=== PATIENT | male | born 1995 | race African-American/Black ===

== ENCOUNTER 2020-12-26 14:45 | Emergency (ER) | payer MEDICAID ==
[~2020-12-26] VITALS: Ht 175.3 cm; Wt 65.9 kg
[2020-12-26] MEDS ORDERED: haloperidol lactate 5mg/ml inj IM ONE ×2 (14:50→15:45)
[2020-12-26] MEDS ORDERED: diphenhydrAMINE 50 mg/ml inj IM ONE (14:50)
[2020-12-26 15:05] VITALS: BP 126/101
[2020-12-26 15:16] LABS: BASOPHILS # (AUTO) 0.1 X10'3 (0-0.2); BASOPHILS % (AUTO) 0.4 % (0-1); EOSINOPHILS % (AUTO) 0.1 % (0-6); HEMOGLOBIN 17.5 g/dl (14.0-17.9); LYMPHOCYTES # (AUTO) 2.1 X10'3 (1.1-4.8); LYMPHOCYTES % (AUTO) 13.9 % (21-51); MEAN CORPUSCULAR HEMOGLOBIN 30.8 PG (27.0-31.0); MEAN CORPUSCULAR HGB CONC 33.7 g/dL (33.0-36.5); MEAN CORPUSCULAR VOLUME 91.4 FL (78-98); MEAN PLATELET VOLUME 8.7 FL (7.4-10.4); MONOCYTES # (AUTO) 0.9 X10'3 (0-0.9); MONOCYTES % (AUTO) 5.6 % (2-12); NEUTROPHILS # (AUTO) 12.3 X10'3 (1.8-7.7); PLATELET COUNT 286 X10'3 (140-440); RED BLOOD COUNT 5.68 X10'6 (4.70-6.10); RED CELL DISTRIBUTION WIDTH 13.3 % (11.5-14.5); WHITE BLOOD COUNT 15.4 X10'3 (4.5-11.0)
[2020-12-26] MEDS ORDERED: LORazepam 2 mg/ml vial IM ONE ×2 (15:25→15:55)
[2020-12-26 15:29] LABS: ALANINE AMINOTRANSFERASE 27 U/L (12-78); ALBUMIN 4.9 G/DL (3.4-5.0); ALBUMIN/GLOBULIN RATIO 1.1 (1.1-1.5); ALKALINE PHOSPHATASE 86 IU/L (46-116); ANION GAP 23 (8-16); ASPARTATE AMINO TRANSFERASE 30 U/L (10-37); BILIRUBIN,TOTAL 0.7 MG/DL (0.1-1.0); BLOOD UREA NITROGEN 10 MG/DL (7-18); BUN/CREATININE RATIO 5.1 (5.4-32.0); CALCIUM 10.1 MG/DL (8.5-10.1); CHLORIDE 105 MMOL/L (99-107); CREATININE 1.98 MG/DL (0.60-1.10); GLUCOSE 106 MG/DL (70-104); POTASSIUM 3.9 MMOL/L (3.5-5.1); SODIUM 144 MMOL/L (135-145); TOTAL CARBON DIOXIDE 15.6 MMOL/L (24-32); TOTAL PROTEIN 9.2 G/DL (6.4-8.2); eGFR 41 ML/MIN
[2020-12-26 15:38] LABS: CREATINE KINASE 434 U/L (39-308)
[2020-12-26 15:46] LABS: ETHANOL < 0.010 GM/DL (0.0-0.010)
== END 2020-12-26 18:40 ==
LOC: ER 14:46
DX: S00.81XA Abrasion of other part of head, initial encounter (principal); R45.1 Restlessness and agitation; F20.9 Schizophrenia, unspecified; F43.10 Post-traumatic stress disorder, unspecified; F29 Unspecified psychosis not due to a substance or known physiological condition; X58.XXXA Exposure to other specified factors, initial encounter; Y93.89 Activity, other specified; Y92.89 Other specified places as the place of occurrence of the external cause; Y99.8 Other external cause status
CPT/HCPCS: 36415; 80053; 80178; 80320; 82550; 84443; 85025; 96372; 99284; J1200; J1630; J2060

== ENCOUNTER 2021-03-01 10:33 | Emergency (ER) | payer MEDICAID ==
[~2021-03-01] VITALS: Ht 175.3 cm; Wt 86.4 kg
[2021-03-01 10:51] VITALS: BP 140/75
[2021-03-01] MEDS ORDERED: HYDR28CR14 TOP (11:40)
[2021-03-01] MEDS ORDERED: PROCHC RC (11:40)
--- NOTE | 2021-03-01 12:15 | NUR ---
PATIENT UPSET WHILE WAITING FOR DC PAPERWORK, WALKED THROUGHT RN STATION AND TRIED TO WALK OUT THE BACK DOOR. WAS STOPPED BY STAFF WHILE I GOT HIS DC PAPERS AND PICKED UP A PORTABLE O2 TANK AND WAS HOLDING IT. DID NOT LISTEN TO DC INSTRUCTIONS, RIPPED THE PAPERS OUT OF MY HAND AND WALKED OUT THE BACK DOOR WITHOUT SIGNING.
== END 2021-03-01 12:20 | disposition home or self-care (01) ==
LOC: ER 10:34
DX: L30.9 Dermatitis, unspecified (principal); K64.9 Unspecified hemorrhoids; Z79.899 Other long term (current) drug therapy
CPT/HCPCS: 99283

== ENCOUNTER 2021-06-02 04:22 | Emergency (ER) | payer MEDICARE, MEDICAID ==
[~2021-06-02] VITALS: Ht 175.3 cm; Wt 77.3 kg
[~2021-06-02 04:22] MED LIST: HYDR28CR14 TOP; PROCHC RC
[2021-06-02] MEDS ORDERED: LORazepam 1 MG tablet PO ONE (04:35)
[2021-06-02] MEDS ORDERED: diphenhydrAMINE 25mg capsule PO ONE ×2 (04:35→21:00)
[2021-06-02] MEDS ORDERED: OLANZapine 5mg rapidly disint. tablet PO ONE (04:35)
[2021-06-02] MEDS ORDERED: OLAN10TA73 PO (05:18)
[2021-06-02] MEDS ORDERED: LITH300T3 PO (05:18)
[2021-06-02 05:46] LABS: BASOPHILS % (AUTO) 0.4 % (0-1); EOSINOPHILS # (AUTO) 0.1 X10'3 (0-0.9); EOSINOPHILS % (AUTO) 0.7 % (0-6); HEMATOCRIT 46.9 % (42.0-52.0); HEMOGLOBIN 15.8 g/dl (14.0-17.9); LYMPHOCYTES # (AUTO) 1.7 X10'3 (1.1-4.8); LYMPHOCYTES % (AUTO) 20.2 % (21-51); MEAN CORPUSCULAR HEMOGLOBIN 31.1 PG (27.0-31.0); MEAN CORPUSCULAR HGB CONC 33.8 g/dL (33.0-36.5); MEAN CORPUSCULAR VOLUME 92.2 FL (78-98); MEAN PLATELET VOLUME 8.6 FL (7.4-10.4); MONOCYTES # (AUTO) 0.4 X10'3 (0-0.9); MONOCYTES % (AUTO) 4.6 % (2-12); NEUTROPHILS # (AUTO) 6.2 X10'3 (1.8-7.7); NEUTROPHILS % (AUTO) 74.1 % (42-75); PLATELET COUNT 246 X10'3 (140-440); RED BLOOD COUNT 5.09 X10'6 (4.70-6.10); WHITE BLOOD COUNT 8.3 X10'3 (4.5-11.0)
[2021-06-02 06:16] LABS: ALANINE AMINOTRANSFERASE 26 U/L (12-78); ALBUMIN 4.3 G/DL (3.4-5.0); ALBUMIN/GLOBULIN RATIO 1.1 (1.1-1.5); ALKALINE PHOSPHATASE 88 IU/L (46-116); ANION GAP 11 (8-16); ASPARTATE AMINO TRANSFERASE 18 U/L (10-37); BILIRUBIN,TOTAL 0.2 MG/DL (0.1-1.0); BLOOD UREA NITROGEN 15 MG/DL (7-18); BUN/CREATININE RATIO 12.5 (5.4-32.0); CALCIUM 9.3 MG/DL (8.5-10.1); CHLORIDE 105 MMOL/L (99-107); GLUCOSE 99 MG/DL (70-104); POTASSIUM 3.6 MMOL/L (3.5-5.1); SODIUM 143 MMOL/L (135-145); TOTAL CARBON DIOXIDE 27.1 MMOL/L (24-32); TOTAL PROTEIN 8.3 G/DL (6.4-8.2); eGFR 89 ML/MIN
[2021-06-02 06:23] LABS: ETHANOL < 0.010 GM/DL (0.0-0.010)
--- NOTE | 2021-06-02 06:30 | NUR ---
patient moved to room 7,on airborne precaution for covid.
[2021-06-02 06:38] LABS: CLARITY,URINE CLEAR (Clear); COLOR,URINE YELLOW (Yellow); GLUCOSE, URINE NEGATIVE (Neg); KETONES,URINE NEGATIVE (Neg); LEUKOCYTE ESTERASE ,URINE NEGATIVE (Neg); NITRITES, URINE NEGATIVE (Neg); OCCULT BLOOD,URINE NEGATIVE (Neg); PH,URINE 6.5 (4.8-8.0); PROTEIN,URINE NEGATIVE (Neg); UROBILINOGEN,URINE 0.2 E.U/dL (0.2-1.0)
[2021-06-02 06:39] LABS: UA COLLECTION TYPE CLN CATCH MIDSTREAM
[2021-06-02 06:51] LABS: URINE AMPHETAMINE SCREEN POSITIVE (Neg); URINE BARBITUATE SCREEN NEGATIVE (Neg); URINE BENZODIAZEPINES SCREEN NEGATIVE (Neg); URINE CANNABINOID SCREEN POSITIVE (Neg); URINE COCAINE SCREEN NEGATIVE (Neg); URINE METHADONE SCREEN NEGATIVE (Neg); URINE OPIATE SCREEN NEGATIVE (Neg); URINE PHENCYCLIDINE SCREEN NEGATIVE (Neg)
--- NOTE | 2021-06-02 07:14 | NUR ---
patient is anxious and paranoid unable to redirect.
--- NOTE | 2021-06-02 07:15 | NUR ---
patient pacing back and forth in the room,stuck right arm inside sharps container, also started eating socks,keeps opening the door wanting to leave inspite knowing he is on a hold and is + for covid.Patient unable to redirect.Dr. Allen made aware and will order b52.
[2021-06-02] MEDS ORDERED: OLANZapine **IM** 10 mg inj. IM ONE ×2 (07:20→13:40)
[2021-06-02] MEDS ORDERED: diphenhydrAMINE 50 mg/ml inj IM ONE ×3 (07:20→18:20)
[2021-06-02] MEDS ORDERED: LORazepam 2 mg/ml vial IM ONE ×2 (07:20→13:40)
[2021-06-02] MEDS: olanzapine 10mg tablet PO SCH ×3 (07:21→21:00)
--- NOTE | 2021-06-02 07:55 | NUR ---
patient trying to elope, 4 point hard restraint placed, patient willing to be on restraint.Patient awake at this time, paranoid that someone will hurt him, RN re assured that patient is in a safe place.
[2021-06-02] MEDS ORDERED: lithium carbonate 150mg capsule PO SCH (08:00)
[2021-06-02] MEDS: lithium carbonate 150mg capsule PO SCH ×3 (08:27→22:28)
--- NOTE | 2021-06-02 08:30 | NUR ---
Given 80ml of water.
[2021-06-02] MEDS: quetiapine 100mg tablet PO SCH (08:59)
--- NOTE | 2021-06-02 10:06 | NUR ---
patient still on 4 point restraint,awake on the bed,actively hallucinating.
--- NOTE | 2021-06-02 11:45 | NUR ---
patient in and out of hallucination.
--- NOTE | 2021-06-02 12:10 | NUR ---
PT IN ROOM, PULLING ARMS UP AGAINST RESTRAINTS. VS CHECKED. DR CAMACHO AND PRIMARY RN NOTIFIED OF HR 120. DR CAMACHO REPORTS THAT SHE WILL SEE THE PT.
--- NOTE | 2021-06-02 13:33 | NUR ---
Patient tip over his bed while on restraint to his right side,security/staff at bedside to assist patient.Dr. Dimitri berger.
--- NOTE | 2021-06-02 13:36 | NUR ---
patient back on bed, continues on 4 point restrainrs, fighting restraints.Trying to get up.
--- NOTE | 2021-06-02 13:39 | NUR ---
Dr. Szymanski seen the patient, no orders at this time.
[2021-06-02 14:18] LABS: CREATINE KINASE 169 U/L (39-308)
--- NOTE | 2021-06-02 14:29 | NUR ---
given 300ml water.Refused to eat when offered yogurt.
--- NOTE | 2021-06-02 14:36 | NUR ---
patient on high fowlers with intermittent agitation and hallucination.
--- NOTE | 2021-06-02 14:56 | NUR ---
patient still fighting restraints,given ativan 2mg IM,zyprexa 10mg IM and benadryl 25mg IM.
--- NOTE | 2021-06-02 15:58 | NUR ---
left hand and right foot restraint off.patient in and out of sleep.
--- NOTE | 2021-06-02 16:33 | NUR ---
patient asleep at this time.respirations regular.
--- NOTE | 2021-06-02 17:14 | NUR ---
patient off of 4 point restraints.
--- NOTE | 2021-06-02 18:19 | NUR ---
patient got up,banging head to the wall.lac to left forehead.patient placed into a four point hard restraint.Dr. Wylie at bedside to assess patient.
[2021-06-02] MEDS ORDERED: haloperidol lactate 5mg/ml inj IM ONE (18:20)
--- NOTE | 2021-06-02 19:59 | NUR ---
Per MD hold scheduled oral medication if patient is calm and resting. Only administer if patient is awake and restless. Pt placed on 5 lead and O2 monitor, and is currently in 4 point restraints.
[2021-06-02] MEDS ORDERED: olanzapine 10mg tablet PO SCH (21:00)
[2021-06-02] MEDS: QUEtiapine 25mg tablet PO SCH (22:28)
--- NOTE | 2021-06-03 02:39 | NUR ---
Restraints removed and patient offered urinal, food, and water. Pt was advised that while out of restraints he needed to keep himself and others safe by following directions and abstaining from violent behavior. Pt given warm blankets and he returned to bed.
[2021-06-03] MEDS: olanzapine 10mg tablet PO SCH ×2 (08:00→21:14)
[2021-06-03] MEDS: lithium carbonate 150mg capsule PO SCH ×3 (10:22→21:14)
[2021-06-03] MEDS: quetiapine 100mg tablet PO SCH (10:22)
--- NOTE | 2021-06-03 18:35 | NUR ---
Patient sitting up eating dinner, no complaints. I will continue to monitor.
[2021-06-03] MEDS: QUEtiapine 25mg tablet PO SCH (21:14)
--- NOTE | 2021-06-04 07:00 | NUR ---
PATIENT UP IN BARRI[place], LOOKING THROUGH DIRTY FOOD TRAYS, STATES HE IS HUNGRY. PATIENT MADE AWARE IT IS NOT YET BREAKFAST HOUR. RETURNED TO [facility] WITH ASSISTANCE OF SECURITY. RESTING COMFORTABLY IN BED.
[2021-06-04] MEDS: olanzapine 10mg tablet PO SCH ×3 (08:00→22:25)
[2021-06-04] MEDS: lithium carbonate 150mg capsule PO SCH ×3 (08:00→22:25)
--- NOTE | 2021-06-04 08:30 | NUR ---
PATIENT STATES HE REFUSES ANY MEDICATIONS UNTIL HE SPEAKS WITH A DOCTOR. DR ALBA MADE AWARE. CAROL HER MADE AWARE.
[2021-06-04] MEDS: quetiapine 100mg tablet PO SCH (08:55)
--- NOTE | 2021-06-04 09:00 | NUR ---
PATIENT SLEEPING, NO SIGNS OF DISTRESS NOTED, PAT WITHIN SITE OF STAFF AT ALL TIMES.
--- NOTE | 2021-06-04 10:00 | NUR ---
PATIENT STATES HE WANTS HIS CELLPHONE SO HE CAN LOOK UP SOME PHONE NUMBERS. PATIENT EDUCATED ON POLICY OF BELONGINGS. PHONE PROVIDED WITH SUPERVISION.
--- NOTE | 2021-06-04 11:43 | NUR ---
JACKI (MOM) [phone] PLEASE CALL HER BACK WHEN YOU CAN.
--- NOTE | 2021-06-04 12:11 | NUR ---
PATIENT SLEEPING, NO SIGNS OF DISTRESS NOTED, WITHIN SITE OF STAFF AT ALL TIMES.
--- NOTE | 2021-06-04 13:14 | NUR ---
LUNCH MEAL TRAY GIVEN TO PT
--- NOTE | 2021-06-04 14:00 | NUR ---
PATIENT SLEEPING, NO SIGNS OF DISTRESS NOTED, PAT WITHIN SITE OF STAFF AT ALL TIMES.
--- NOTE | 2021-06-04 15:00 | NUR ---
PATIENT SLEEPING, NO SIGNS OF DISTRESS NOTED, WITHIN SITE OF STAFF AT ALL TIMES.
--- NOTE | 2021-06-04 16:46 | NUR ---
PATIENT ASKED FOR WARM BLANKETS AND A SNACK. RETURNED TO BED, PATIENT WITHIN SITE OF STAFF AT ALL TIMES.
--- NOTE | 2021-06-04 18:42 | NUR ---
ASSUMED CARE OF PT. PT LYING ON GURNEY. SLEEPING COMFORTABLY. EQUAL RISE AND FALL OF CHEST.
--- NOTE | 2021-06-04 20:00 | NUR ---
PT LYING ON HIS LEFT SIDE SLEEPING. EQUAL RISE AND FALL OF CHEST.
--- NOTE | 2021-06-04 21:00 | NUR ---
PT CONTINUED TO SLEEP COMFORTABLY ON HIS SIDE. EQUAL RISE AND FALL OF CHEST .
[2021-06-04] MEDS: QUEtiapine 25mg tablet PO SCH (22:25)
--- NOTE | 2021-06-04 22:35 | NUR ---
I HAD NO ISSUES GIVING PT HIS MEDICATIONS. PT WAS PLEASANT AND COMPLIANT. NO COMPLAINTS AT PRESENT.
--- NOTE | 2021-06-04 23:00 | NUR ---
DAX PEREZ, KINDLY GAVE PT A MEAL HE HAD NOT HAD HIS MEAL TRAY DELIVERED. PT THANKED ANA AND IS CURRENTLY SITTING ON HIS BED EATING.
--- NOTE | 2021-06-05 00:36 | NUR ---
PT IS COMFORTABLY SLEEPING ON HIS SIDE. EQUAL RISE AND FALL OF CHEST.
--- NOTE | 2021-06-05 01:30 | NUR ---
PT IS SLEEPING COMFORTABLY. EQUAL RISE AND FALL OF CHEST.
--- NOTE | 2021-06-05 02:25 | NUR ---
PT WENT TO RESTROOM AND BACK. HE IS LYING DOWN IN BED AGAIN AND SLEEPING. EQUAL RISE AND FALL OF CHEST.
--- NOTE | 2021-06-05 03:30 | NUR ---
PT SLEEPING COMFORTABLY. NO COMPLAINTS
--- NOTE | 2021-06-05 04:30 | NUR ---
PT SHIFTED IN BED. CONTINUES TO SLEEP. EQUAL RISE AND FALL OF CHEST.
--- NOTE | 2021-06-05 06:00 | NUR ---
PT IS SLEEPING. EQUAL RISE AND FALL OF CHEST.
--- NOTE | 2021-06-05 06:49 | NUR ---
Patient asleep at this time, we will monitor.
--- NOTE | 2021-06-05 08:15 | NUR ---
patient denies SI or HI at this time.cooperative.
--- NOTE | 2021-06-05 09:00 | NUR ---
[facility] AT BEDSIDE.
[2021-06-05] MEDS: olanzapine 10mg tablet PO SCH ×2 (09:29→21:02)
[2021-06-05] MEDS: lithium carbonate 150mg capsule PO SCH ×3 (09:29→21:01)
[2021-06-05] MEDS: quetiapine 100mg tablet PO SCH (09:39)
--- NOTE | 2021-06-05 10:30 | NUR ---
patient apprehensive about being discharge even after explaining that [facility] will plan his dc/ transfer, also reminded that he is on a hold-Patient became anxious,also noted patient using computer to watch youtube,reminded it's Not allowed-computer disabled and keyboard taken out from the room.
[2021-06-05] MEDS ORDERED: LORazepam 1 MG tablet PO ONE (10:35)
--- NOTE | 2021-06-05 11:06 | NUR ---
patient asleep at this time,received ativan 2mg po.
--- NOTE | 2021-06-05 11:58 | NUR ---
given cheese sticks.awaiting for lunch.
--- NOTE | 2021-06-05 13:27 | NUR ---
patient asleep.We will monitor.
--- NOTE | 2021-06-05 19:06 | NUR ---
Patient sitting on gurney, just finished dinner. I will continue to monitor.
[2021-06-05 20:00] VITALS: BP 133/57
[2021-06-05] MEDS: QUEtiapine 25mg tablet PO SCH (21:02)
--- NOTE | 2021-06-06 01:00 | NUR ---
PT RESTING IN BED, APPERS TO BE ASLEEP, SWITCHED POSITIONS AND IS BREATHING NORMALLY IN NO OBVIOUS DISTRESS
--- NOTE | 2021-06-06 02:54 | NUR ---
PT RESTING IN BED, WITH EVEN UNLABORED RESPIRATIONS, NO SIGNS OF DISTRESS.
[2021-06-06] MEDS: quetiapine 100mg tablet PO SCH (08:55)
[2021-06-06] MEDS: olanzapine 10mg tablet PO SCH (11:03)
[2021-06-06] MEDS: lithium carbonate 150mg capsule PO SCH (11:03)
--- NOTE | 2021-06-06 11:41 | NUR ---
[facility] AT BEDSIDE.
== END 2021-06-06 12:20 | disposition home or self-care (01) ==
LOC: ER 04:22
DX: U07.1 COVID-19 (principal); R45.851 Suicidal ideations; F23 Brief psychotic disorder; F15.10 Other stimulant abuse, uncomplicated; Z72.89 Other problems related to lifestyle; Z79.899 Other long term (current) drug therapy; R41.82 Altered mental status, unspecified; S09.90XA Unspecified injury of head, initial encounter; S00.93XA Contusion of unspecified part of head, initial encounter
CPT/HCPCS: 36415; 70450; 80053; 80305; 80320; 81003; 82550; 84443; 85025; 87635; 93005; 96372; 99291; C9803; J1200; J1630; J2060; J3490; Q0163

== ENCOUNTER 2021-06-19 00:04 | Emergency (ER) | payer MEDICARE, MEDICAID ==
[~2021-06-19] VITALS: Ht 175.3 cm; Wt 90.9 kg
[~2021-06-19 00:04] MED LIST changes: -HYDR28CR14 TOP; +LITH300T3 PO; +OLAN10TA73 PO; -PROCHC RC
[2021-06-19] MEDS ORDERED: azithromycin 250mg tablet PO ONE (01:30)
[2021-06-19] MEDS ORDERED: DOXYCYCLINE 100MG CAPSULE PO STA (01:33)
--- NOTE | 2021-06-19 02:13 | NUR ---
per md edwards, ok to cancel covid swab since pt was positive here on 06/02/21 and out of the quarentine window.
[2021-06-19] MEDS ORDERED: ketorolac trometh inj. 60 MG/2 ML VIAL IM ONE (02:15)
--- NOTE | 2021-06-19 02:33 | NUR ---
pt requesting covid swab. per md edwards, complete covid swab and reorder.
[2021-06-19] MEDS ORDERED: DOXY100T67 PO (03:12)
--- NOTE | 2021-06-19 03:25 | NUR ---
pt refused toradol injection. pt requesting medical records, explained to pt the process to obtain them. pt unhappy with my explanation and started yelling at staff and becoming confrontations. pt escorted out of lobby with security.
[2021-06-19 03:40] VITALS: BP 139/87
== END 2021-06-19 03:41 | disposition home or self-care (01) ==
LOC: ER 00:07
DX: Z13.89 Encounter for screening for other disorder (principal); Z20.822 Contact with and (suspected) exposure to COVID-19; R53.83 Other fatigue; R06.02 Shortness of breath; R07.89 Other chest pain; F20.9 Schizophrenia, unspecified; F15.90 Other stimulant use, unspecified, uncomplicated; Z72.89 Other problems related to lifestyle; Z79.2 Long term (current) use of antibiotics; Z79.899 Other long term (current) drug therapy
CPT/HCPCS: 71045; 87635; 99284; C9803

== ENCOUNTER 2021-07-09 22:49 | Emergency (ER) | payer MEDICARE, MEDICAID ==
[~2021-07-09] VITALS: Ht 175.3 cm; Wt 75.0 kg
[2021-07-09] MEDS ORDERED: diphenhydrAMINE 50 mg/ml inj IM ONE (22:55)
[2021-07-09] MEDS ORDERED: LORazepam 2 mg/ml vial IM ONE (22:55)
[2021-07-09] MEDS ORDERED: haloperidol lactate 5mg/ml inj IM ONE ×2 (23:05→23:45)
[2021-07-09 23:48] LABS: BASOPHILS # (AUTO) 0.1 X10'3 (0-0.2); BASOPHILS % (AUTO) 0.4 % (0-1); EOSINOPHILS % (AUTO) 0 % (0-6); HEMATOCRIT 43.1 % (42.0-52.0); HEMOGLOBIN 14.9 g/dl (14.0-17.9); LYMPHOCYTES % (AUTO) 14.4 % (21-51); MEAN CORPUSCULAR HGB CONC 34.5 g/dL (33.0-36.5); MEAN CORPUSCULAR VOLUME 89.7 FL (78-98); MEAN PLATELET VOLUME 8.2 FL (7.4-10.4); MONOCYTES # (AUTO) 0.8 X10'3 (0-0.9); MONOCYTES % (AUTO) 5.8 % (2-12); NEUTROPHILS # (AUTO) 11.3 X10'3 (1.8-7.7); NEUTROPHILS % (AUTO) 79.4 % (42-75); PLATELET COUNT 288 X10'3 (140-440); RED BLOOD COUNT 4.81 X10'6 (4.70-6.10); RED CELL DISTRIBUTION WIDTH 13.3 % (11.5-14.5); WHITE BLOOD COUNT 14.2 X10'3 (4.5-11.0)
[2021-07-10 00:13] LABS: ALANINE AMINOTRANSFERASE 15 U/L (12-78); ALBUMIN 4.4 G/DL (3.4-5.0); ALBUMIN/GLOBULIN RATIO 1.2 (1.1-1.5); ALKALINE PHOSPHATASE 87 IU/L (46-116); ANION GAP 13 (8-16); ASPARTATE AMINO TRANSFERASE 23 U/L (10-37); BILIRUBIN,TOTAL 0.5 MG/DL (0.1-1.0); BLOOD UREA NITROGEN 17 MG/DL (7-18); BUN/CREATININE RATIO 13.8 (5.4-32.0); CALCIUM 9.6 MG/DL (8.5-10.1); CHLORIDE 105 MMOL/L (99-107); CREATININE 1.23 MG/DL (0.60-1.10); ETHANOL < 0.010 GM/DL (0.0-0.010); GLUCOSE 132 MG/DL (70-104); POTASSIUM 3.4 MMOL/L (3.5-5.1); SODIUM 141 MMOL/L (135-145); TOTAL CARBON DIOXIDE 23.3 MMOL/L (24-32); eGFR 85 ML/MIN
--- NOTE | 2021-07-10 06:49 | NUR ---
PAGED MOVED FROM BED 1 TO BED 14 BY LUIS MAHAN ,NO DISTRESS NOTED.WILL CONT TO MONITOR.
--- NOTE | 2021-07-10 08:38 | NUR ---
PT IS SLEEPING AT THIS TIME ,URINE STILL PENDING . IS AWARE .RR WNL ,WILL CONT TO MONITOR .ROOM IN FRONT OF CHARGE NURSE DESK.
--- NOTE | 2021-07-10 12:08 | NUR ---
PT SLEEPING IN RGT LATERAL POSITION ,RR WNL .WILL CONT TO MONITOR.
[2021-07-10 12:38] LABS: URINE AMPHETAMINE SCREEN POSITIVE (Neg); URINE BARBITUATE SCREEN NEGATIVE (Neg); URINE BENZODIAZEPINES SCREEN NEGATIVE (Neg); URINE CANNABINOID SCREEN POSITIVE (Neg); URINE COCAINE SCREEN NEGATIVE (Neg); URINE METHADONE SCREEN NEGATIVE (Neg); URINE OPIATE SCREEN NEGATIVE (Neg); URINE PHENCYCLIDINE SCREEN NEGATIVE (Neg)
--- NOTE | 2021-07-10 13:00 | NUR ---
RN received pt. from main ER and placed in bed 20
[2021-07-10 17:08] LABS: CLARITY,URINE CLEAR (Clear); COLOR,URINE YELLOW (Yellow); GLUCOSE, URINE NEGATIVE (Neg); KETONES,URINE NEGATIVE (Neg); LEUKOCYTE ESTERASE ,URINE NEGATIVE (Neg); NITRITES, URINE NEGATIVE (Neg); OCCULT BLOOD,URINE NEGATIVE (Neg); PROTEIN,URINE NEGATIVE (Neg); UROBILINOGEN,URINE 0.2 E.U/dL (0.2-1.0)
[2021-07-10] MEDS ORDERED: potassium Cl 20 mEq SR tablet PO STA (17:10)
[2021-07-10 17:13] LABS: UA COLLECTION TYPE CLN CATCH MIDSTREAM
--- NOTE | 2021-07-10 17:24 | NUR ---
RN woke pt. up for 1:1 assessment and to give pt. 20mEq of K+ for a decreased K+ of 3.4. Pt. hesitatingly took medication. During 1:1 pt. was guarded and gave minimal information. Pt. states he is here because he has bipolar and wanted to get some help. When asked f/u questions pt. did not respond. Pt. denies SI/HI, A/V hallucinations. Pt. denies any previous SA. Pt. reports he takes no home medications. Pt. reports he was previously hospitalized a "few months ago for the same thing". Pt. refused to answer further questions. Pt. asked for more juice boxes appearing to be paranoid to drink the water from his pitcher.
[2021-07-10] MEDS ORDERED: NO HOME MEDS (17:38)
[2021-07-10] MEDS ORDERED: OLANZapine 2.5MG tablet PO STA (17:42)
[2021-07-10] MEDS ORDERED: LORazepam 1 MG tablet PO ONE (17:45)
[2021-07-10] MEDS ORDERED: olanzapine 10mg tablet PO STA (17:50)
--- NOTE | 2021-07-10 17:54 | NUR ---
Pt. acting increasingly agitated and paranoid, states, "I really don't need to be here". RN received order for now dose of Zyprexa 10mg and Ativan 2mg po. Pt. took accepted without issue.
[2021-07-10] MEDS ORDERED: OLANZapine 2.5MG tablet PO PRN (18:05)
[2021-07-10] MEDS ORDERED: LORazepam 1 MG tablet PO PRN (18:05)
--- NOTE | 2021-07-10 18:43 | NUR ---
One to one with the patient. He currently denies auditory or visual hallucinations. He also denied paranoia and added, "not now" He denies depression or suicidal thoughts. He described his mood as "calm, speepy" He stated that in the past he has taken lithium but he has no interest in starting that medication and stated he does not believe he has bipolar disorder.
--- NOTE | 2021-07-10 21:36 | NUR ---
The patient appears to be sleeping
--- NOTE | 2021-07-11 00:38 | NUR ---
The patient appears to be sleeping
[2021-07-11] MEDS ORDERED: sulfamethoxazole/trimethoprim DS (800/160mg) tablet PO ONE (01:40)
--- NOTE | 2021-07-11 02:40 | NUR ---
The patient appears to be sleeping currently. He was awake briefly and had a snack
--- NOTE | 2021-07-11 03:58 | NUR ---
The patient appears to be sleeping
--- NOTE | 2021-07-11 05:34 | NUR ---
The patient appeared to have slept well during the night
--- NOTE | 2021-07-11 07:59 | NUR ---
Pt continues to sleep restfully in supine position, respirations even and unlabored.
[2021-07-11] MEDS ORDERED: sulfamethoxazole/trimethoprim DS (800/160mg) tablet PO SCH (08:00)
--- NOTE | 2021-07-11 09:00 | NUR ---
Pt awake eating breakfast, pt is calm and cooperative. Pt states he is here because "I had a mental health episode." Pt denies A/VH, denies wanting to hurt self or others. Pt asked if he could leave if he wanted too. Manager Community explained that he was on a 72-hour hold pt said "okay." Pt denies history of any MH diagnosis. Pt appears fatigued. Pt ate 100% of his breakfast. Reassured pt that if he became anxious or agitated there was PRN medication for him.
--- NOTE | 2021-07-11 11:03 | NUR ---
Pt sleeping comfortably in supine position, respiratione even and unlabored.
--- NOTE | 2021-07-11 12:56 | NUR ---
Pt resting comfortably, respirations even and unlabored.
--- NOTE | 2021-07-11 14:42 | NUR ---
Pt spoke with [facility] clinician stating "I want to leave." "Can I go?" Pt states "I have money I can buy a one way train ticket back home." Pt states he lives in [place] and the mission there is able to take care of his needs. Clinician will work on a viable safety plan.
--- NOTE | 2021-07-11 15:37 | NUR ---
Received confirmation that pt has funds to cover [employer] ticket to [place] - TICKET CONFIRMATION #[id number]. [facility] clinician is aware of this and will discharge pt accordingly. Pt states he has items at [facility], will send pt to mission to pick up worker items then taxi to train station. Pt is A&O x4, pt has had no agitation or anxious episodes. Pt is calm, cooperative. No delusional statements made. Pt does not appear to be responding to internal stimuli. Denies all psychotic symptoms.
--- NOTE | 2021-07-11 17:28 | NUR ---
Pt resting comfortably on his bed, no distress noted.
[2021-07-11 18:09] VITALS: BP 110/55
--- NOTE | 2021-07-11 18:15 | NUR ---
DISCHARGE NOTE: Pt was discharged from unit at 1805. Pt left with all personal belonings. DCP: Pt has [employer] ticket in hand CONFIRM #[id number]. Pt will be taxied to [facility] to turkey picker belongings then to [facility]. Semi Automatic Sewing Machine Operator reinforced the importance of pt staying at terminal. Pt was A&O x4. Pt was linear in thought stating "I'm going home!" Affect bright. Pt was given snacks and drinks for trip.
== END 2021-07-11 18:23 | disposition home or self-care (01) ==
LOC: ER 22:50
DX: F23 Brief psychotic disorder (principal); Z20.822 Contact with and (suspected) exposure to COVID-19; F15.10 Other stimulant abuse, uncomplicated; F31.9 Bipolar disorder, unspecified; Z91.14 Patient's other noncompliance with medication regimen; Z72.89 Other problems related to lifestyle; Z79.2 Long term (current) use of antibiotics; Z79.899 Other long term (current) drug therapy
CPT/HCPCS: 36415; 80053; 80305; 80320; 81003; 85025; 87635; 96372; 99291; C9803; J1200; J1630; J2060